=== PATIENT | male | born 1985 | race Caucasian/White ===

== ENCOUNTER 2017-02-11 13:42 | Emergency (ER) | payer MEDICARE, OTHER ==
[~2017-02-11 13:42] MED LIST: ACET500CAP PO; ADVIL PO; AUG875 PO; BACDS PO; CIP5 PO; COMBIGAN0.2 MG/0.5 OPH; DIAM250B PO; GLUCPH PO; HUMULIN SC; LUMIGAN2.5 ML OPH; NICODERM C21 MG/241 TOP; OTC FIBER TABLET PO; PRIN20 PO; SANTYL250 MG/GM TOP; SILVADENE1 % TOP; ZESTRIL20 MG PO; ZOCOR20 PO; ZYVOXPO PO
== END 2017-02-11 14:54 | disposition home or self-care (01) ==
LOC: ER 13:42
PROC: 0H9DXZZ Drainage of Right Lower Arm Skin, External Approach (ICD-10-PCS; principal; 2017-02-11)
DX: L02.413 Cutaneous abscess of right upper limb (principal); E11.9 Type 2 diabetes mellitus without complications; Z79.899 Other long term (current) drug therapy
CPT/HCPCS: 87070; 87077; 87186; 87205; 99283